=== PATIENT | female | born 2000 | race African-American/Black ===

== ENCOUNTER 2018-03-20 15:18 | Emergency (ER) | payer MEDICAID ==
[2018-03-20 15:47] VITALS: BP 111/70
--- NOTE | 2018-03-20 16:26 | UC ---
Throat Pain/Nasal Cruz HPI - HPI Summary HPI Summary: 17-year-old woman comes in with a chief complaint of 3 weeks of sinus congestion symptoms. Rhinorrhea is been yellow she has sinus pressure. No chest congestion. Patient's tried multiple [id number]-gqk-[id number] medications both pills and nasal sprays and thinGs seem to be getting worse rather than better. - History of Current Complaint Chief Complaint: UCGeneralIllness Stated Complaint: SINUS COMPLAINT Time Seen by Provider: 03/20/18 16:14 Pain Intensity: 5 - Allergies/Home Medications Allergies/Adverse Reactions: Allergies Allergy/AdvReac Type Severity Reaction Status Date / Time No Known Allergies Allergy Verified 03/20/18 15:45 Home Medications: Home Medications Ibuprofen [Advil] 200 mg PO ONCE 03/20/18 [History Confirmed 03/20/18] PMH/Surg Hx/FS Hx/Imm Hx Previously Healthy: Yes - Surgical History Surgical History: None - Family History Known Family History: Positive: Non-Contributory - Social History Alcohol Use: Occasionally Substance Use Type: None Smoking Status (MU): Never Smoked Tobacco Review of Systems All Other Systems Reviewed And Are Negative: Yes Constitutional: Positive: Negative Skin: Positive: Negative Eyes: Positive: Negative ENT: Positive: Sore Throat, Ear Ache, Nasal Discharge, Sinus Congestion, Sinus Pain/Tenderness Respiratory: Positive: Negative Cardiovascular: Positive: Negative Gastrointestinal: Positive: Negative Motor: Positive: Negative Neurovascular: Positive: Negative Musculoskeletal: Positive: Negative Neurological: Positive: Negative Psychological: Positive: Negative Is Patient Immunocompromised?: No Physical Exam Triage Information Reviewed: Yes Appearance: No Pain Distress, Well-Nourished, Ill-Appearing - MILD Vital Signs: Initial Vital Signs Temp 98.8 F 03/20/18 15:42 Pulse 96 03/20/18 15:42 Resp 17 03/20/18 15:42 BP 111/70 03/20/18 15:42 Pulse Ox 100 03/20/18 15:42 Vital Signs Reviewed: Yes Eye Exam: Normal Eyes: Positive: Conjunctiva Clear ENT: Positive: Pharyngeal erythema, Nasal congestion, Nasal drainage, TM dull - B/L Neck exam: Normal Neck: Positive: Supple Respiratory: Positive: Lungs clear, Normal breath sounds, No respiratory distress Cardiovascular: Positive: RRR Musculoskeletal Exam: Normal Musculoskeletal: Positive: Strength Intact, ROM Intact Neurological Exam: Normal Neurological: Positive: Alert, Muscle Tone Normal Psychological Exam: Normal Psychological: Positive: Age Appropriate Behavior Skin Exam: Normal Throat Pain/Nasal Course/Dx - Course Course Of Treatment: The patient reports she's tried multiple dznb-ejj-cbcxjjf medications to include nasal sprays got relief and actually getting worse. Possibly patient's been using decongestants that she's getting rebound sinus mucosal swelling. I discussed this with her and let her know to not take anymore aqrq-lju-yqapeik medications other than ibuprofen or Tylenol and to not do any nasal sprays other than saline nasal spray. We'll also treat with Augmentin and Medrol Dosepak. Patient is to get her rechecked if not improved or worse. - Differential Dx/Diagnosis Provider Diagnosis: Sinusitis Discharge - Sign-Out/Discharge Documenting (check all that apply): Patient Departure All imaging exams completed and their final reports reviewed: No Studies - Discharge Plan Condition: Stable Disposition: HOME Prescriptions: Amoxicillin/Clavulanate TAB* [Augmentin TAB 875*] 875 mg PO BID #20 tab methylPREDNISolone [Medrol Dosepak 4 MG*] 0 mg PO .SEE JOSEPH INSTRUCTION #1 joseph Patient Education Materials: Sinusitis (ED) Referrals: [facility] [place] [facility] [Outside] Additional Instructions: FOLLOW UP WITH YOUR PRIMARY CARE DOCTOR OR RETURN HERE IF NOT COMPLETELY IMPROVED. GET RECHECKED FOR ANY WORSENING OF YOUR CONDITION OR QUESTIONS OR CONCERNS. - Billing Disposition and Condition Condition: STABLE Disposition: Home
== END 2018-03-20 16:32 | disposition home or self-care (01) ==
LOC: UCCORT 15:18
DX: J32.9 Chronic sinusitis, unspecified (principal)
CPT/HCPCS: 99202; G0463